=== PATIENT | female | born 1955 | race Caucasian/White ===

== ENCOUNTER 2024-09-04 08:48 | Inpatient (IN) ==
[2024-09-04] MEDS ORDERED: Albuterol/Ipratropium NEB.SOL (2.5/0.5 MG) 3 ML NEB.SOLN ONE ×2 (08:59→09:00)
[2024-09-04] MEDS: methylPREDNISolone SOD SUCC 125 mg 2 ML VIAL IV ONE (09:14)
[2024-09-04] MEDS: Magnesium Sulfate 2 gm BAG 2 GM/50 ML BAG IVPB ONE (09:14)
[2024-09-04] MEDS: cefTRIAXone 1 gm/50 mL D5W 1 GM/50 ML BAG IV ONE (09:15)
[2024-09-04 09:18] LABS: PO2 Arterial 145 mmHg (80-100)
[2024-09-04 09:23] LABS: PCO2 Arterial 88 mmHg (35-45)
[2024-09-04 09:41] LABS: Hematocrit 50.4 % (35-45); Hemoglobin 16.5 g/dL (11.5-14.3); Mean Corpuscular Hemoglobin 29.3 pg (27-33); Mean Corpuscular Hgb Conc 32.9 g/dL (31-36); Mean Corpuscular Volume 89.1 fL (80-97); Mean Platelet Volume 7.9 fL (7.5-11.2); Platelet Count 274 10^3/uL (150-450); Red Blood Count 5.65 10^6/uL (3.63-4.92); Red Cell Distribution Width 14.3 % (12-17); White Blood Count 11.1 10^3/uL (3.8-11.8)
[2024-09-04] MEDS: Azithromycin 500 mg/250 ml NS 500 MG/250 ML BAG IVPB ONE (09:51)
[2024-09-04 10:22] LABS: Albumin 4.3 g/dL (3.5-5.7); Albumin/Globulin Ratio 1.5 (1-3); Calcium 9.1 mg/dL (8.6-10.3); Creatinine, Serum 0.86 mg/dL (0.51-0.95); Globulin 2.9 g/dL (2-4); Potassium 4.6 mmol/L (3.5-5.0); Total Bilirubin 0.7 mg/dL (0.2-1.0); Total Protein 7.2 g/dL (6.4-8.9); eGFR CKD-EPI 72.6 (>60)
[2024-09-04] MEDS: Albuterol/Ipratropium NEB.SOL (2.5/0.5 MG) 3 ML NEB.SOLN INH SCH ×3 (10:23→19:33)
[2024-09-04 10:27] LABS: ABS Basophils 0.1 10^3/uL (0.0-0.1); ABS Lymphocytes 0.9 10^3/uL (1.0-4.8); ABS Monocytes 1.9 10^3/uL (0.0-0.9); ABS Neutrophils 8.3 10^3/uL (1.5-7.6); ABS Nucleated RBC 0.02 10^3/ul; Eosinophil % 0.1 %; Lymphocyte % 7.7 %; Nucleated Red Blood Cells % 0.2 %/100WBC (0.0-0.8)
[2024-09-04] MEDS ORDERED: Sulfur Hexaflouride MICROSPHR 25 MG VIAL IV PRN (11:15)
[2024-09-04 11:48] LABS: Resp Rate 16
[2024-09-04] MEDS ORDERED: Albuterol/Ipratropium NEB.SOL (2.5/0.5 MG) 3 ML NEB.SOLN INH PRN (11:49)
[2024-09-04 11:55] LABS: PCO2 Arterial 78 mmHg (35-45)
[2024-09-04] MEDS: Pantoprazole VIAL 40 MG VIAL IV SCH (12:10)
[2024-09-04] MEDS: Enoxaparin 40 MG/0.4 ML SYR SUBCUT SCH (20:45)
[2024-09-05 05:33] LABS: Hematocrit 44.8 % (35-45); Hemoglobin 14.9 g/dL (11.5-14.3); Mean Corpuscular Hemoglobin 29.8 pg (27-33); Mean Corpuscular Hgb Conc 33.3 g/dL (31-36); Mean Corpuscular Volume 89.5 fL (80-97); Platelet Count 267 10^3/uL (150-450); Red Blood Count 5.01 10^6/uL (3.63-4.92); Red Cell Distribution Width 14.6 % (12-17); White Blood Count 8.8 10^3/uL (3.8-11.8)
[2024-09-05 05:41] LABS: ABS Lymphocytes 0.8 10^3/uL (1.0-4.8); ABS Monocytes 1.6 10^3/uL (0.0-0.9); ABS Neutrophils 6.4 10^3/uL (1.5-7.6); ABS Nucleated RBC 0.02 10^3/ul; Lymphocyte % 8.5 %; Nucleated Red Blood Cells % 0.2 %/100WBC (0.0-0.8)
[2024-09-05 06:04] LABS: Blood Urea Nitrogen 30 mg/dL (6-24); CO2 Carbon Dioxide > 45 mmol/L (22-32); Calcium 8.3 mg/dL (8.6-10.3); Chloride 89 mmol/L (101-111); Creatinine, Serum 0.85 mg/dL (0.51-0.95); Glucose 108 mg/dL (70-100); Magnesium 2.3 mg/dL (1.9-2.7); Potassium 4.3 mmol/L (3.5-5.0); Sodium 133 mmol/L (135-145); eGFR CKD-EPI 73.7 (>60)
[2024-09-05] MEDS: methylPREDNISolone SOD SUCC 40 mg/ml 1 ml VIAL IV SCH (08:08)
[2024-09-05] MEDS: Azithromycin 500 mg/250 ml NS 500 MG/250 ML BAG IVPB SCH (08:09)
[2024-09-05] MEDS ORDERED: Azithromycin 500 mg/250 ml NS 500 MG/250 ML BAG IVPB SCH (09:00)
[2024-09-05] MEDS ORDERED: cefTRIAXone 1 gm/50 mL D5W 1 GM/50 ML BAG IV SCH (09:00)
[2024-09-05] MEDS: cefTRIAXone 1 gm/50 mL D5W 1 GM/50 ML BAG IV SCH (10:57)
[2024-09-05] MEDS: Furosemide 20 mg/2 ml IV VIAL IV SLOW PU ONE (10:58)
[2024-09-06 04:18] LABS: Hematocrit 46.1 % (35-45); Hemoglobin 15.3 g/dL (11.5-14.3); Mean Corpuscular Hemoglobin 29.7 pg (27-33); Mean Corpuscular Hgb Conc 33.2 g/dL (31-36); Mean Corpuscular Volume 89.6 fL (80-97); Mean Platelet Volume 7.8 fL (7.5-11.2); Platelet Count 251 10^3/uL (150-450); Red Blood Count 5.15 10^6/uL (3.63-4.92); Red Cell Distribution Width 14.4 % (12-17); White Blood Count 12.2 10^3/uL (3.8-11.8)
[2024-09-06 05:15] LABS: Blood Urea Nitrogen 24 mg/dL (6-24); CO2 Carbon Dioxide > 45 mmol/L (22-32); Calcium 8.7 mg/dL (8.6-10.3); Chloride 88 mmol/L (101-111); Creatinine, Serum 0.64 mg/dL (0.51-0.95); Glucose 135 mg/dL (70-100); Magnesium 1.9 mg/dL (1.9-2.7); Potassium 4.6 mmol/L (3.5-5.0); Sodium 137 mmol/L (135-145)
[2024-09-06] MEDS: Magnesium Sulfate 2 gm BAG 2 GM/50 ML BAG IVPB ONE (08:09)
[2024-09-06] MEDS: Propofol 10 mg/ml 100 ML BTL 1,000 MG/100 ML BTL ONE (16:56)
[2024-09-07 05:10] LABS: ABS Lymphocytes 0.4 10^3/uL (1.0-4.8); ABS Monocytes 0.8 10^3/uL (0.0-0.9); ABS Neutrophils 11.4 10^3/uL (1.5-7.6); ABS Nucleated RBC 0.01 10^3/ul; Hematocrit 46.9 % (35-45); Hemoglobin 15.5 g/dL (11.5-14.3); Mean Corpuscular Hemoglobin 29.7 pg (27-33); Mean Corpuscular Hgb Conc 33.1 g/dL (31-36); Mean Corpuscular Volume 89.7 fL (80-97); Mean Platelet Volume 7.6 fL (7.5-11.2); Nucleated Red Blood Cells % 0.1 %/100WBC (0.0-0.8); Platelet Count 253 10^3/uL (150-450); Red Blood Count 5.23 10^6/uL (3.63-4.92); Red Cell Distribution Width 14.6 % (12-17); White Blood Count 12.6 10^3/uL (3.8-11.8)
[2024-09-07] MEDS: Furosemide 40 mg/4 ml IV VIAL IV SLOW PU ONE (05:19)
[2024-09-07 07:02] LABS: Blood Urea Nitrogen 24 mg/dL (6-24); CO2 Carbon Dioxide > 45 mmol/L (22-32); Calcium 9.2 mg/dL (8.6-10.3); Chloride 87 mmol/L (101-111); Creatinine, Serum 0.65 mg/dL (0.51-0.95); Glucose 133 mg/dL (70-100); Potassium 4.9 mmol/L (3.5-5.0); Sodium 136 mmol/L (135-145); eGFR CKD-EPI 94.7 (>60)
[2024-09-07] MEDS: methylPREDNISolone SOD SUCC 40 mg/ml 1 ml VIAL IV SCH ×2 (08:57→21:22)
[2024-09-07] MEDS: Furosemide 20 mg/2 ml IV VIAL IV SLOW PU ONE (16:54)
[2024-09-08 04:50] LABS: Hematocrit 47.1 % (35-45); Hemoglobin 15.5 g/dL (11.5-14.3); Mean Corpuscular Hemoglobin 29.4 pg (27-33); Mean Corpuscular Hgb Conc 32.9 g/dL (31-36); Mean Corpuscular Volume 89.3 fL (80-97); Mean Platelet Volume 7.7 fL (7.5-11.2); Platelet Count 241 10^3/uL (150-450); Red Blood Count 5.27 10^6/uL (3.63-4.92); Red Cell Distribution Width 14.4 % (12-17); White Blood Count 10.8 10^3/uL (3.8-11.8)
[2024-09-08 05:35] LABS: Blood Urea Nitrogen 24 mg/dL (6-24); CO2 Carbon Dioxide > 45 mmol/L (22-32); Calcium 8.8 mg/dL (8.6-10.3); Chloride 84 mmol/L (101-111); Creatinine, Serum 0.61 mg/dL (0.51-0.95); Glucose 119 mg/dL (70-100); Magnesium 1.7 mg/dL (1.9-2.7); Potassium 4.5 mmol/L (3.5-5.0); Sodium 135 mmol/L (135-145); eGFR CKD-EPI 96.1 (>60)
[2024-09-08] MEDS: Aspirin EC 81 mg TAB.EC (enteric coated) PO SCH (08:50)
[2024-09-08] MEDS: Magnesium Sulfate 2 gm BAG 2 GM/50 ML BAG IVPB ONE (08:55)
[2024-09-08] MEDS: Iohexol 350 (CONTRAST) 500 ML MDV IV ONE (10:27)
[2024-09-09 05:42] LABS: ABS Lymphocytes 0.6 10^3/uL (1.0-4.8); ABS Monocytes 1.4 10^3/uL (0.0-0.9); ABS Neutrophils 7.3 10^3/uL (1.5-7.6); ABS Nucleated RBC 0.01 10^3/ul; Eosinophil % 0.1 %; Hematocrit 47.7 % (35-45); Hemoglobin 16.1 g/dL (11.5-14.3); Lymphocyte % 6.7 %; Mean Corpuscular Hemoglobin 29.8 pg (27-33); Mean Corpuscular Hgb Conc 33.7 g/dL (31-36); Mean Corpuscular Volume 88.4 fL (80-97); Mean Platelet Volume 7.6 fL (7.5-11.2); Nucleated Red Blood Cells % 0.1 %/100WBC (0.0-0.8); Platelet Count 230 10^3/uL (150-450); Red Cell Distribution Width 14.6 % (12-17); White Blood Count 9.3 10^3/uL (3.8-11.8)
[2024-09-09 06:38] LABS: Blood Urea Nitrogen 17 mg/dL (6-24); CO2 Carbon Dioxide > 45 mmol/L (22-32); Calcium 8.6 mg/dL (8.6-10.3); Chloride 82 mmol/L (101-111); Creatinine, Serum 0.57 mg/dL (0.51-0.95); Glucose 91 mg/dL (70-100); Magnesium 1.8 mg/dL (1.9-2.7); Phosphorus 4.3 mg/dL (2.5-5.0); Potassium 4.8 mmol/L (3.5-5.0); Sodium 134 mmol/L (135-145); eGFR CKD-EPI 97.7 (>60)
[2024-09-09] MEDS: Albuterol/Ipratropium NEB.SOL (2.5/0.5 MG) 3 ML NEB.SOLN INH SCH (09:41)
[2024-09-09] MEDS: Magnesium Sulfate 2 gm BAG 2 GM/50 ML BAG IVPB ONE (09:42)
[2024-09-10 05:45] LABS: ABS Lymphocytes 0.5 10^3/uL (1.0-4.8); ABS Monocytes 1.4 10^3/uL (0.0-0.9); ABS Nucleated RBC 0.01 10^3/ul; Hematocrit 45.2 % (35-45); Hemoglobin 15.2 g/dL (11.5-14.3); Lymphocyte % 5.7 %; Mean Corpuscular Hemoglobin 29.7 pg (27-33); Mean Corpuscular Hgb Conc 33.7 g/dL (31-36); Mean Corpuscular Volume 87.9 fL (80-97); Mean Platelet Volume 7.7 fL (7.5-11.2); Nucleated Red Blood Cells % 0.1 %/100WBC (0.0-0.8); Platelet Count 199 10^3/uL (150-450); Red Blood Count 5.14 10^6/uL (3.63-4.92); Red Cell Distribution Width 14.3 % (12-17); White Blood Count 8.9 10^3/uL (3.8-11.8)
[2024-09-10 06:37] LABS: Blood Urea Nitrogen 16 mg/dL (6-24); CO2 Carbon Dioxide > 45 mmol/L (22-32); Calcium 8.5 mg/dL (8.6-10.3); Chloride 85 mmol/L (101-111); Glucose 90 mg/dL (70-100); Phosphorus 4.6 mg/dL (2.5-5.0); Potassium 4.7 mmol/L (3.5-5.0); Sodium 131 mmol/L (135-145); eGFR CKD-EPI 96.5 (>60)
[2024-09-10] MEDS: methylPREDNISolone SOD SUCC 40 mg/ml 1 ml VIAL IV SCH (10:02)
[2024-09-11 06:44] LABS: Hematocrit 46.6 % (35-45); Hemoglobin 15.3 g/dL (11.5-14.3); Mean Corpuscular Hgb Conc 32.8 g/dL (31-36); Mean Corpuscular Volume 88.4 fL (80-97); Mean Platelet Volume 8.1 fL (7.5-11.2); Platelet Count 189 10^3/uL (150-450); Red Blood Count 5.28 10^6/uL (3.63-4.92); Red Cell Distribution Width 14.6 % (12-17); White Blood Count 9.3 10^3/uL (3.8-11.8)
[2024-09-11 06:48] LABS: ABS Lymphocytes 1.1 10^3/uL (1.0-4.8); ABS Monocytes 1.8 10^3/uL (0.0-0.9); ABS Neutrophils 6.3 10^3/uL (1.5-7.6); ABS Nucleated RBC 0.01 10^3/ul; Eosinophil % 0.4 %; Lymphocyte % 12.4 %; Nucleated Red Blood Cells % 0.1 %/100WBC (0.0-0.8)
[2024-09-11 07:42] LABS: Calcium 8.1 mg/dL (8.6-10.3); Creatinine, Serum 0.5 mg/dL (0.51-0.95); Magnesium 1.8 mg/dL (1.9-2.7); eGFR CKD-EPI 100.8 (>60)
[2024-09-11] MEDS: methylPREDNISolone SOD SUCC 40 mg/ml 1 ml VIAL IV SCH (08:44)
[2024-09-11 10:31] LABS: Venous Bicarbonate HCO3 39.6 mmol/L (24-28)
[2024-09-12 06:37] LABS: Hematocrit 47.3 % (35-45); Hemoglobin 15.6 g/dL (11.5-14.3); Mean Corpuscular Hemoglobin 29.4 pg (27-33); Mean Corpuscular Hgb Conc 33.1 g/dL (31-36); Mean Corpuscular Volume 88.9 fL (80-97); Mean Platelet Volume 8.5 fL (7.5-11.2); Platelet Count 167 10^3/uL (150-450); Red Blood Count 5.32 10^6/uL (3.63-4.92); Red Cell Distribution Width 14.6 % (12-17); White Blood Count 10.2 10^3/uL (3.8-11.8)
[2024-09-12 06:48] LABS: ABS Monocytes 1.7 10^3/uL (0.0-0.9); ABS Neutrophils 7.4 10^3/uL (1.5-7.6); Eosinophil % 0.3 %; Lymphocyte % 10.1 %
[2024-09-12 07:24] LABS: Calcium 8.3 mg/dL (8.6-10.3); Creatinine, Serum 0.55 mg/dL (0.51-0.95); eGFR CKD-EPI 98.5 (>60)
[2024-09-12 18:15] LABS: Calcium 8.6 mg/dL (8.6-10.3); Creatinine, Serum 0.75 mg/dL (0.51-0.95); Potassium 3.6 mmol/L (3.5-5.0); eGFR CKD-EPI 85.6 (>60)
[2024-09-13 06:36] LABS: Venous Bicarbonate HCO3 33.8 mmol/L (24-28)
[2024-09-13 07:16] LABS: Calcium 8.4 mg/dL (8.6-10.3); Creatinine, Serum 0.61 mg/dL (0.51-0.95); Magnesium 1.8 mg/dL (1.9-2.7); Potassium 3.7 mmol/L (3.5-5.0); eGFR CKD-EPI 96.1 (>60)
[2024-09-13] MEDS: Magnesium Sulfate 2 gm BAG 2 GM/50 ML BAG IVPB ONE (10:37)
[2024-09-13 13:20] VITALS: BP 91/69
== END 2024-09-13 18:00 | disposition home or self-care (01) | DRG 190 ==
LOC: ED 08:48 → EDHOLD 08:48 → ICU 14:18 → SUATTDRO 09-06 09:28 → MED 09-11 10:05
PROVIDERS: ADMIT Student in an Organized Health Care Education/Training Program; ATTEND Student in an Organized Health Care Education/Training Program